=== PATIENT | male | born 1945 | race Caucasian/White ===

== ENCOUNTER 2018-11-09 21:34 | Emergency (ER) | payer OTHER ==
[~2018-11-09] VITALS: Ht 170.2 cm; Wt 81.6 kg
[2018-11-09] MEDS ORDERED: cloNIDine HCL 0.1 MG TAB ONE (21:40)
[2018-11-09] MEDS ORDERED: cloNIDine HCL 0.1 MG TAB PO ONE (21:45)
[2018-11-09 21:54] VITALS: BP 178/97
[2018-11-09 22:32] LABS: Basophils # (auto) 0 uL; Basophils % (auto) 0.5 % (0.0-2.0); Eosinophils # (auto) 0 uL; Eosinophils % (auto) 0.3 % (0.0-7.0); Hematocrit 44.6 % (41.0-53.0); Hemoglobin 15.7 g/dL (13.5-17.5); Lymphocytes # (auto) 0.9 uL; Lymphocytes % (auto) 9.4 % (10.0-50.0); Mean Corpuscular Hemoglobin 30.6 pg (28.0-32.0); Mean Corpuscular Hgb Conc. 35.1 g/dL (32.0-36.0); Mean Corpuscular Volume 87.1 fL (80.0-100.0); Monocytes # (auto) 0.4 uL; Neutrophils # (auto) 8.1 uL; Neutrophils % (auto) 85.8 % (37.0-80.0); Platelet Count (auto) 210 10^3/uL (140-450); Red Blood Cells 5.12 10^6/uL (4.5-5.90); Red Cell Distribution Width 13.4 % (11.8-14.3); White Blood Cell 9.4 10^3/uL (4.4-10.8)
[2018-11-09 22:48] LABS: Albumin 4.1 g/dL (3.4-5.0); Calcium 8.9 mg/dL (8.5-10.1); Potassium 4.1 mmol/L (3.5-5.1)
[2018-11-09 22:51] LABS: BUN/Creatinine Ratio 16.1; Bilirubin, Total 0.3 mg/dL (0.2-1.0); Total Protein 8.3 g/dL (6.4-8.2)
== END 2018-11-09 23:35 | disposition left against medical advice (07) ==
LOC: EDBD 21:34 → ER 21:37
DX: R51 Headache (principal); Z53.21 Procedure and treatment not carried out due to patient leaving prior to being seen by health care provider
CPT/HCPCS: 36415; 70450; 80053; 85025

== ENCOUNTER 2019-01-29 13:41 | Inpatient (IN) | payer OTHER ==
[2019-01-29] VITALS (36 sets, daily range): BP systolic 88–189; BP diastolic 51–93
[~2019-01-29] VITALS: Ht 182.9 cm; Wt 96.1 kg
[2019-01-29] MEDS ORDERED: MIDAZOLAM DRIP 50 mg/50mL 50 ML IV ONE ×2 (14:20→15:45)
[2019-01-29] MEDS ORDERED: ETOMIDATE (2MG/ML) 20ML VIAL IV ONE ×2 (14:20→16:15)
[2019-01-29] MEDS ORDERED: SUCCINYLCHOLINE CHLORIDE 20 MG/ML 10ML VIAL IV ONE ×2 (14:20→16:15)
[2019-01-29] MEDS: MIDAZOLAM DRIP 50 mg/50mL 50 ML IV SCH ×2 (14:37→20:15)
[2019-01-29] MEDS ORDERED: PROPOFOL 100 ML IV ONE ×2 (14:43→14:45)
[2019-01-29] MEDS ORDERED: MORPHINE SULF INJ 2 MG/ML SYRINGE 1ML ONE (14:44)
[2019-01-29] MEDS ORDERED: AMIODARONE HCL (50 MG/ ML) 3 ML VIAL IV ONE (14:44)
[2019-01-29] MEDS ORDERED: PROPOFOL 100 ML IV SCH (14:47)
[2019-01-29 14:48] LABS: Basophils # (auto) 0 uL; Basophils % (auto) 0.4 % (0.0-2.0); Eosinophils # (auto) 0 uL; Eosinophils % (auto) 0.1 % (0.0-7.0); Hematocrit 40.2 % (41.0-53.0); Hemoglobin 13.4 g/dL (13.5-17.5); Lymphocytes # (auto) 0.1 uL; Lymphocytes % (auto) 1.7 % (10.0-50.0); Mean Corpuscular Hemoglobin 28.9 pg (28.0-32.0); Mean Corpuscular Hgb Conc. 33.3 g/dL (32.0-36.0); Mean Corpuscular Volume 86.8 fL (80.0-100.0); Monocytes # (auto) 0.1 uL; Monocytes % (auto) 1.3 % (0.0-12.0); Neutrophils # (auto) 5.4 uL; Neutrophils % (auto) 96.5 % (37.0-80.0); Platelet Count (auto) 165 10^3/uL (140-450); Red Blood Cells 4.63 10^6/uL (4.5-5.90); Red Cell Distribution Width 14.1 % (11.8-14.3); White Blood Cell 5.5 10^3/uL (4.4-10.8)
[2019-01-29] MEDS ORDERED: NOREPINEPHRINE 8 MG/250ML KIT 250 ML IV ONE (14:50)
[2019-01-29 15:00] LABS: INR 1.03 (0.9-1.15)
[2019-01-29] MEDS ORDERED: ALBUTEROL SULF 2.5 MG/0.5ML(0.5%) NEB SOLN NEB PRN (15:00)
[2019-01-29] MEDS ORDERED: SODIUM CHLORIDE 0.9% 1,000 ML IV SCH (15:00)
[2019-01-29] MEDS ORDERED: VANCOMYCIN PER PHARMACY 0 MG IV SCH (15:00)
[2019-01-29] MEDS ORDERED: MORPHINE SULF INJ 2 MG/ML SYRINGE 1ML IV PRN (15:00)
[2019-01-29] MEDS ORDERED: NITROGLYCERIN 0.4 MG SL TAB SL PRN (15:00)
[2019-01-29] MEDS ORDERED: IPRATROPIUM BROM 0.5 MG/2.5ML INH SOL NEB PRN (15:00)
[2019-01-29] MEDS ORDERED: MORPHINE SULF INJ 2 MG/ML SYRINGE 1ML IV ONE ×2 (15:00→16:15)
[2019-01-29 15:05] LABS: Alanine Aminotransferase 23 U/L (16-61); Albumin 2.9 g/dL (3.4-5.0); Anion Gap 14 (5-15); Aspartate Aminotransferase 19 U/L (15-37); BUN/Creatinine Ratio 17.8; Blood Alcohol < 3.0 mg/dL (0-5); Blood Urea Nitrogen 32 mg/dL (7-18); Calcium 8.5 mg/dL (8.5-10.1); Carbon Dioxide 21 mmol/L (21-32); Chloride 98 mmol/L (98-107); GFR African American 48 mL/min; GFR Non-African American 40 mL/min; Glucose 288 mg/dL (74-106); Magnesium 1.5 mg/dL (1.6-2.6); Potassium 3.3 mmol/L (3.5-5.1); Sodium 133 mmol/L (136-145)
[2019-01-29 15:08] LABS: Lactic Acid w/Reflex 3.1 mmol/L (0.4-2.0)
[2019-01-29] MEDS: NOREPINEPHRINE 8 MG/250ML KIT 250 ML IV SCH ×2 (15:08→20:28)
[2019-01-29 15:10] LABS: Alkaline Phosphatase 110 U/L (45-117); Bilirubin, Total 0.5 mg/dL (0.2-1.0); Total Protein 7.2 g/dL (6.4-8.2)
[2019-01-29] MEDS ORDERED: SODIUM CHLORIDE 0.9% 3,150 ML IV ONE (15:15)
[2019-01-29] MEDS ORDERED: DEXTROSE (50%) 50ML SYRG IV PRN (15:30)
[2019-01-29] MEDS ORDERED: POTASSIUM CHL 20MEQ/100ML 100 ML IV ONE (15:30)
--- NOTE | 2019-01-29 16:00 | NUR ---
RT Transport Note: Patient transported to {CT THEN ICU 109} with RN {JULIETH AND RN STUDENTS}. Patient transported to and from procedure on ventilator with previous ordered settings. Patient on security services manager with alarms set and audible, ambu-bag/mask connected to 02 tank. Patient returned to room with no adverse reaction noted. Transport completed without incident.
--- NOTE | 2019-01-29 16:15 | NUR ---
Admit to ICU from ER on vent TOVAR,DEMETRIO Farahdmitted to ICU via gurney on marketing agent, intubated and being bagged by Respiratory Therapist. Patient transfered to bed, connected to mechanical ventilator by therapist, ANTHONY at bedside. Patient connected to ICU monitoring, weighed by bedscale, oriented to Yogi horton RN, unit, ventilator and sedation.
[2019-01-29] MEDS: MAGNESIUM SULFATE 1GM/100ML 100 ML IV SCH ×4 (16:33→20:13)
[2019-01-29] MEDS ORDERED: SODIUM CHLORIDE 0.9% 1,000 ML IV ONE (16:45)
[2019-01-29] MEDS ORDERED: methylPREDNISolone SOD SUCC 125 MG/2 ML VL IV ONE (16:45)
--- NOTE | 2019-01-29 16:55 | NUR ---
Respiratory note: PER 'S VERBAL BEDSIDE ORDER. VENT SETTINGS CHANGED AC 20/470/+12/100%. SATS NOTED TO SLOWLY INCREASE TO 91%. RN DOMINIK AT BEDSIDE AND AWARE OF SETTING CHANGES. WILL HAVE NOC THERAPIST FOLLOW WITH CARE.
[2019-01-29] MEDS ORDERED: InsuLIN REG 1unit/0.01ml Soln (100units/ml) SC SCH ×2 (17:00→22:00)
[2019-01-29] MEDS: PHENYLEPHRINE INJ 20 MG in SODIUM CHL 0.9% 250 ML IV SCH (17:12)
--- NOTE | 2019-01-29 17:17 | NUR ---
INFLUENZA AND STREP SENT TO LAB
[2019-01-29] MEDS: ACCU-CHEK COMFORT CURVE STRIP VI SCH ×2 (17:36→22:18)
--- NOTE | 2019-01-29 18:05 | NUR ---
FAMILY SPOKE WITH IMER [phone]. UPDATED ON PATIENT STATUS
[2019-01-29] MEDS: PROPOFOL 100 ML IV SCH (18:08)
[2019-01-29] MEDS: VANCOMYCIN 500 MG in D5W 5% 100 ML IV SCH (18:20)
[2019-01-29] MEDS: LEVALBUTEROL HCL 1.25 MG/3 ML NEB NEB SCH ×2 (18:27→22:35)
[2019-01-29] MEDS: IPRATROPIUM BROM 0.5 MG/2.5ML INH SOL NEB SCH ×2 (18:28→22:35)
[2019-01-29] MEDS: SODIUM CHLORIDE 0.9% 1,000 ML IV SCH ×3 (18:37→22:47)
[2019-01-29] MEDS: PIPERACILLIN-TAZOB 3.375GM 100 ML IV SCH (18:58)
[2019-01-29] MEDS ORDERED: LOS25T GT (19:26)
[2019-01-29] MEDS ORDERED: NIFE30TA76 PO ×2 (19:26)
[2019-01-29] MEDS ORDERED: HYDR-4833 PO (19:27)
[2019-01-29] MEDS ORDERED: GABA300C11 GT (19:27)
[2019-01-29] MEDS ORDERED: PANT1INJ3 IV (19:28)
[2019-01-29] MEDS ORDERED: TOBR1NEB IN (19:29)
--- NOTE | 2019-01-29 19:29 | NUR ---
MED REC COMPLETED WITHOUT DOSAGE AND FREQUENCY. PER IMER SHE WILL BRING IN COMPLETE LIST OF MEDICATIONS TOMORROW 01/30
--- NOTE | 2019-01-29 19:30 | NUR ---
REPORT GIVEN TO AKSHAT HEIN TO ASSUME CARE
--- NOTE | 2019-01-29 19:45 | NUR ---
ASSUMED CARE OF PATIENT FULL ASSESSMENT DONE-REFER INTERVENTIONS
--- NOTE | 2019-01-29 20:43 | NUR ---
HOSPITALIST AT BEDSIDE OCEAN LIFEGUARD KALEB AT BEDSIDE. NOTED OF PARAMETERS AND URINE OUTPUT. ORDERS RECEIVED
[2019-01-29] MEDS ORDERED: VASOPRESSIN 50 UNITS in D5W 5% 247.5 ML IV SCH (20:45)
--- NOTE | 2019-01-29 20:45 | NUR ---
SEDATION DAMAGE INSIDE ADJUSTER KALEB ORDERS TO USE VERSED AND FENTANYL FOR SEDATION AND TURNED OFF PROPOFOL
[2019-01-29] MEDS: FAMOTIDINE (10MG/ML) 2ML VL IV SCH (22:22)
--- NOTE | 2019-01-29 22:40 | NUR ---
HOSPITALIST PAGED FOR HIGH BLOOD SUGAR
[2019-01-29] MEDS: fentaNYL Drip 2500mCg/250mlNS 250 ML IV SCH (22:42)
--- NOTE | 2019-01-29 22:42 | NUR ---
SEDATION STARTED ON IV FENTANYL WILL WEAN DOWN IV PROPOFOL UNTIL OFF
--- NOTE | 2019-01-29 23:00 | NUR ---
HOSPITALIST CALLED BACK TALKED TO JEANINE SCHOFIELD INFORMED OF BLOOD SUGAR 470MG/DL WAS ALREADY GIVEN 10 UNITS SC NO ADDITIONAL INSULIN ORDERED, NO OTHER ORDERS RECEIVED
[2019-01-30] VITALS (102 sets, daily range): BP systolic 86–152; BP diastolic 52–81
--- NOTE | 2019-01-30 | NUR ---
TEMP 97.2 CHECKED RECTAL PROBE - IT WAS IN PLACE WARM BLANKET APPLIED WILL CONTINUE TO MONITOR
[2019-01-30] MEDS: MIDAZOLAM DRIP 50 mg/50mL 50 ML IV SCH ×4 (00:40→23:52)
[2019-01-30] MEDS: PIPERACILLIN-TAZOB 3.375GM 100 ML IV SCH ×4 (00:45→19:59)
[2019-01-30] MEDS: PHENYLEPHRINE INJ 20 MG in SODIUM CHL 0.9% 250 ML IV SCH (01:32)
[2019-01-30] MEDS: IPRATROPIUM BROM 0.5 MG/2.5ML INH SOL NEB SCH ×6 (02:30→22:05)
--- NOTE | 2019-01-30 03:10 | NUR ---
BLOOD SUGAR RECHECKED BLOOD SUGAR 491MG/DL CALLED HOSPITALIST TELEPHONE ORDER RECEIVED AND VERIFIED ACCU CHECK Q4H WITH MODERATE SLIDING SCALE
[2019-01-30] MEDS: SODIUM CHLORIDE 0.9% 1,000 ML IV SCH ×5 (03:13→23:52)
[2019-01-30] MEDS: ACCU-CHEK COMFORT CURVE STRIP VI SCH ×8 (03:14→22:30)
[2019-01-30] MEDS: InsuLIN REG 1unit/0.01ml Soln (100units/ml) SC SCH ×3 (03:18→13:04)
[2019-01-30 03:54] LABS: Basophils # (auto) 0 uL; Basophils % (auto) 0.3 % (0.0-2.0); Eosinophils # (auto) 0 uL; Hematocrit 36.1 % (41.0-53.0); Hemoglobin 12.1 g/dL (13.5-17.5); Lymphocytes # (auto) 0.3 uL; Lymphocytes % (auto) 2.7 % (10.0-50.0); Mean Corpuscular Hemoglobin 29.8 pg (28.0-32.0); Mean Corpuscular Hgb Conc. 33.5 g/dL (32.0-36.0); Monocytes # (auto) 0.3 uL; Monocytes % (auto) 2.3 % (0.0-12.0); Neutrophils # (auto) 10.9 uL; Neutrophils % (auto) 94.7 % (37.0-80.0); Nucleated Red Blood Cells % 0.1 %; Platelet Count (auto) 187 10^3/uL (140-450); Red Blood Cells 4.06 10^6/uL (4.5-5.90); Red Cell Distribution Width 14.2 % (11.8-14.3); White Blood Cell 11.5 10^3/uL (4.4-10.8)
[2019-01-30 04:11] LABS: Anion Gap 10 (5-15); Blood Urea Nitrogen 30 mg/dL (7-18); Carbon Dioxide 21 mmol/L (21-32); Chloride 103 mmol/L (98-107); Potassium 4.6 mmol/L (3.5-5.1); Sodium 134 mmol/L (136-145)
[2019-01-30 04:12] LABS: Albumin 2.2 g/dL (3.4-5.0); BUN/Creatinine Ratio 17.6; Calcium 7.7 mg/dL (8.5-10.1); GFR African American 51 mL/min; GFR Non-African American 42 mL/min; Magnesium 2.8 mg/dL (1.6-2.6)
[2019-01-30 04:16] LABS: Alanine Aminotransferase 20 U/L (16-61); Alkaline Phosphatase 94 U/L (45-117); Aspartate Aminotransferase 19 U/L (15-37); Bilirubin, Total 0.5 mg/dL (0.2-1.0); Cholesterol 145 mg/dL (< 200); HDL Cholesterol 10 mg/dL (40-59); Total Protein 6.2 g/dL (6.4-8.2); Triglycerides 701 mg/dL (< 150)
[2019-01-30 04:30] LABS: Glucose 488 mg/dL (74-106)
--- NOTE | 2019-01-30 05:30 | NUR ---
Patient bathe/linen change Patient given a sponge bath. Skin integrity assessed for any changes. Linens changed. Patient repositioned for comfort.
[2019-01-30] MEDS: VANCOMYCIN 500 MG in D5W 5% 100 ML IV SCH ×2 (06:19→18:00)
[2019-01-30] MEDS: NOREPINEPHRINE 8 MG/250ML KIT 250 ML IV SCH (06:47)
[2019-01-30] MEDS: LEVALBUTEROL HCL 1.25 MG/3 ML NEB NEB SCH ×3 (07:06→18:08)
--- NOTE | 2019-01-30 07:15 | NUR ---
OPENING NOTE SHIFT REPORT RECEIVED AND ASSUMED CARE OF PT FROM AKSHAT HEIN
--- NOTE | 2019-01-30 07:30 | NUR ---
REPORT REPORT GIVEN TO ANGEL LUIS CHOPAR
--- NOTE | 2019-01-30 09:00 | NUR ---
HOSPITALIST PAGED REGARDING BLOOD SUGAR
--- NOTE | 2019-01-30 09:05 | NUR ---
HOSPITALIST CALLED BACK WITH ORDER TO RE-CHECK BLOOD SUGAR IN 1 HOUR
[2019-01-30] MEDS ORDERED: GOLYTELY 4L KIT PO ONE (09:45)
--- NOTE | 2019-01-30 10:00 | NUR ---
DR. YUSUF AT BEDSIDE ORDERS RECEIVED
--- NOTE | 2019-01-30 10:00 | NUR ---
DR. SAPP AT BEDSIDE ORDERS RECEIVED. COLONOSCOPY FOR TOMORROW. CONSENT SIGNED
[2019-01-30] MEDS: ENOXAPARIN SOD 40 MG/0.4 ML SYRINGE SC SCH (10:04)
[2019-01-30] MEDS: FAMOTIDINE (10MG/ML) 2ML VL IV SCH ×2 (10:04→22:01)
--- NOTE | 2019-01-30 11:32 | NUR ---
NUTRITION CONSULT/ASSESSMENT NOTES Please refer to link notes of nutrition screen form filed under the intervention section of the plan of care for further details. Est. Needs: 1950 kcal to 2400 kcal (20-25 kcal/kgBW), 78 gms to 97 gms pro (0.8-1.0 gms/kgBW). Will continue to monitor pertinent labs and reassess nutrient need prn Thank you for this consult. Addendum: 01/30/19 at [address] Amended: Links added.
--- NOTE | 2019-01-30 12:20 | NUR ---
DR. MARROQUIN AT BEDSIDE ORDERS RECEIVED
[2019-01-30] MEDS ORDERED: InsuLIN R (HUMAN) 100 UNITS in SODIUM CHL 0.9% 99 ML IV SCH ×9 (12:23→16:48)
[2019-01-30] MEDS ORDERED: DEXTROSE (50%) 50ML SYRG IV PRN ×3 (12:30→20:15)
[2019-01-30] MEDS ORDERED: ACCU-CHEK COMFORT CURVE STRIP VI SCH ×2 (12:30→18:30)
--- NOTE | 2019-01-30 12:30 | NUR ---
COOLING MEASURES INITIATED
[2019-01-30] MEDS ORDERED: SODIUM BICARBONATE 8.4% INJ 50ML SYRINGE IV ONE (12:35)
[2019-01-30] MEDS ORDERED: ATROPINE SULF 1 MG/10ml SYR IV ONE (12:35)
[2019-01-30] MEDS ORDERED: EPINEPHrine HCL 1 MG/10 ML SYRG IV ONE (12:35)
--- NOTE | 2019-01-30 12:40 | NUR ---
DR. CARDOZO AT BEDSIDE ORDERS RECEIVED
--- NOTE | 2019-01-30 12:41 | NUR ---
01/30/19 1225 Contacted Library Specialist Libby at [facility] and requested authorization to be provided for patient's continued stay. Per Library Specialist Libby, she is requesting clinical information from today 01/30 to be faxed to her as what she received this morning was from 01/29. She stated once she receives the additional clinical information she will review it with her MD and make a decision regarding further inpatient authorization. I faxed requested clinical information (01/30 vitals, labs, xrays and medication list) to [phone]. I also provided [facility] Library Specialist Libby with a verbal update on the clinical status of the patient as well as providing her with contact information for attending physician Dr. Osborn.
--- NOTE | 2019-01-30 13:11 | NUR ---
WOUND CARE NOTE: WOUND CONSULT ORDERED FOR SKIN INTEGRITY D/T LOW ALFREDA SCORES, INTUBATION STATUS. PATIENT ADMITTED TO [facility] WITH DIAGNOSIS OF ACUTE RESPIRATORY FAILURE. CURRENT ALFREDA SCORE IS 11. PATIENT REMAINS INTUBATED, SEDATED AT THIS TIME. HE IS WOUND FREE CURRENTLY. SKIN/WOUND CARE PLAN HAS BEEN IMPLEMENTED. PATIENT WOULD BENEFIT FROM: FREQUENT TURN SCHEDULE Q 2 HOURS, PRN CONDITION PERMITS, WITH PRESSURE REDISTRIBUTION USING PILLOWS/WEDGES, BID/PRN APPLICATION WITH MOISTURE BARRIER CREAM, OPTIFOAM GENTLE SACRAL DRESSING PREVENTATIVE, DIETARY CONSULT, CONTINUED MONITORING BY WOUND CARE TEAM.
--- NOTE | 2019-01-30 13:20 | NUR ---
1315 01/30/[address] Osborn who stated patient not stable for transfer to [facility] today. I called [facility] [phone] and spoke with correspondence analyst Hussein who transferred me to correspondence analyst Ashley (for Programming Internship Libby). I made correspondence analyst Ashley aware that patient is not stable for transfer to [facility] today-she said Programming Internship Libby will still have to review the faxed clinical information to make a decision on authorization for today. I provided Ashley with my contact information, contact information for Dr. Osborn already provided to Programming Internship Libby.
--- NOTE | 2019-01-30 14:00 | NUR ---
GO LYTLEY INITIATED 200ML THROUGH NG TUBE. WILL CONTINUE TO MONITOR
[2019-01-30] MEDS ORDERED: FUROSEMIDE 40 MG/4 ML VIAL IV ONE (14:15)
[2019-01-30] MEDS: fentaNYL Drip 2500mCg/250mlNS 250 ML IV SCH (14:47)
--- NOTE | 2019-01-30 14:57 | NUR ---
RECEIVED INSULIN DRIP FROM PHARMACY BLOOD SUGAR 357. WILL START INSULIN DRIP AT 4UNITS/HR PER PROTOCOL. WILL CONTINUE TO MONITOR
--- NOTE | 2019-01-30 16:00 | NUR ---
NG RESIDUAL 80ML. 100ML GIVEN. WILL CONTINUE TO MONITOR
[2019-01-30] MEDS: PROPOFOL 100 ML IV SCH (16:06)
--- NOTE | 2019-01-30 16:15 | NUR ---
1545 01/30/19 I called [facility] [phone] and spoke with corporate strategy analyst Alma requesting continued inpatient authorization (as I have not received a call back from registered nurse hh case manager Libby). Per Alma the clinical information is still being reviewed-I requested that Alma have Farm Tractor Mechanic Libby call me when authorization decision is reached.
--- NOTE | 2019-01-30 16:47 | NUR ---
BLOOD SUGAR 332. WILL MOVE UP TO NEXT ALGORITHM #2 DUE TO BLOOD SUGAR NOT DECREASING BY 50-70 PER PROTOCOL
[2019-01-30 17:30] LABS: Calcium 7.8 mg/dL (8.5-10.1); Potassium 4.4 mmol/L (3.5-5.1)
[2019-01-30] MEDS ORDERED: ACETAMINOPHEN 650 mg PER 20 mL UD GT ONE (18:00)
--- NOTE | 2019-01-30 18:57 | NUR ---
BLOOD SUGAR 268 WILL ADJUST INSULIN TO 5 UNITS/HR PER PROTOCOL
--- NOTE | 2019-01-30 19:20 | NUR ---
CLOSING NOTE SHIFT REPORT GIVEN AND CARE ENDORSED TO JULIETH HEIN
--- NOTE | 2019-01-30 19:30 | NUR ---
OPEN ASSUMED CARE OF MALE PT ORALLY INTUBATED NO SS OF DISTRESS, VS ARE STABLE. PT HAS R TRIPLE IJ, R AC 18G, L UPPER ARM 20G. ALL LINES ARE PATENT AND ASYMPTOMATIC, DRESSINGS ARE CLEAN AND DRY. PT IS ON FENT 80MCG/HR, INSULIN DRIP 8ML/HR,VERSED 8MG/HR, NS AT 100ML/HR. PT PUPILS ARE 3 AND BRISK REACTIVE. PT SPONTANEOUSLY OPENS EYES. GRIMACES WITH TURN AND POSITIVE GAG AND COUGH WITH SUCTION. PT HAS A LARGE BUMP BELOW THE R CLAVICAL, A SCAR TO THE R SIDE OF THE ABDOMEN. OPTIFOAM APPLIED TO SACRUM FOR PREVENTATIVE MEASURES. BILATERALLY COLD LOWER EXTREMITIES BOTH PEDAL PULSES PALPABLE AND CAP REFILL <3. PT HAS FOLY HANGING BELOW BLADDER DRAINING YELLOW URINE. PT HAS RECTAL THERMOMETER. PT HAS PILLOWS IN PLACE UNDER IHSAN PROMINENCES TO OFFLOAD PRESSURE FOR SAFETY AND COMFORT. BED IS IN LOWEST LOCKED POSITION, HOB 45*, PT IS IN FULL VIEW OF RN STATION WILL CONTINUE TO CARE FOR AND MONITOR.
[2019-01-30] MEDS: InsuLIN R (HUMAN) 100 UNITS in SODIUM CHL 0.9% 99 ML IV SCH (20:07)
--- NOTE | 2019-01-30 23:10 | NUR ---
PT REMAINS INTUBATED PT REMAINS INTUBATED, NO SS OF DISTRESS NOTED AT THIS TIME, VS ARE STABLE
[2019-01-31] VITALS (101 sets, daily range): BP systolic 95–179; BP diastolic 55–101
[2019-01-31] MEDS: ACCU-CHEK COMFORT CURVE STRIP VI SCH ×16 (00:02→22:53)
[2019-01-31] MEDS: fentaNYL Drip 2500mCg/250mlNS 250 ML IV SCH (00:02)
[2019-01-31] MEDS: LEVALBUTEROL HCL 1.25 MG/3 ML NEB NEB SCH ×4 (00:27→18:47)
[2019-01-31] MEDS: PIPERACILLIN-TAZOB 3.375GM 100 ML IV SCH ×3 (00:40→13:47)
--- NOTE | 2019-01-31 01:20 | NUR ---
SUCTION CANISTERS AND TUBING CHANGED
[2019-01-31] MEDS: IPRATROPIUM BROM 0.5 MG/2.5ML INH SOL NEB SCH ×5 (02:19→18:47)
--- NOTE | 2019-01-31 03:15 | NUR ---
HYGIENE PARTIAL BED BATH AND JUAN ANTONIO CHANGE PROVIDED. PT TOLERATED CARE AND TURNS. VS ARE STABLE.
[2019-01-31 04:39] LABS: Potassium 4.3 mmol/L (3.5-5.1)
[2019-01-31 04:44] LABS: Albumin 2.2 g/dL (3.4-5.0); Bilirubin, Total 0.3 mg/dL (0.2-1.0); Calcium 7.8 mg/dL (8.5-10.1); Magnesium 2.8 mg/dL (1.6-2.6); Total Protein 6.3 g/dL (6.4-8.2)
[2019-01-31 04:46] LABS: Basophils # (auto) 0 uL; Basophils % (auto) 0.2 % (0.0-2.0); Eosinophils # (auto) 0 uL; Eosinophils % (auto) 0.1 % (0.0-7.0); Hematocrit 32.6 % (41.0-53.0); Lymphocytes # (auto) 0.5 uL; Lymphocytes % (auto) 5.6 % (10.0-50.0); Mean Corpuscular Hemoglobin 29.9 pg (28.0-32.0); Mean Corpuscular Hgb Conc. 33.8 g/dL (32.0-36.0); Mean Corpuscular Volume 88.6 fL (80.0-100.0); Monocytes # (auto) 0.4 uL; Monocytes % (auto) 5.3 % (0.0-12.0); Neutrophils # (auto) 7.4 uL; Neutrophils % (auto) 88.8 % (37.0-80.0); Platelet Count (auto) 147 10^3/uL (140-450); Red Blood Cells 3.68 10^6/uL (4.5-5.90); Red Cell Distribution Width 14.6 % (11.8-14.3); White Blood Cell 8.4 10^3/uL (4.4-10.8)
[2019-01-31] MEDS: VANCOMYCIN 500 MG in D5W 5% 100 ML IV SCH (06:28)
--- NOTE | 2019-01-31 07:15 | NUR ---
Opening Shift Note: Report received from ANGEL LUIS Rizvi. Patient is intubated -scheduled for Bronch and CPAP today. Patient had high residuals not tolerating Golytely,.will reassess. See Interventions for more specific patient assessment.
--- NOTE | 2019-01-31 08:20 | NUR ---
Residuals checked = 150 out. Not tolerating golytely. Administered more Golytely and will check residuals in 2 hours to verify tolerance.
--- NOTE | 2019-01-31 09:14 | NUR ---
PT SWITCHED TO HEATED WIRE CIRCUIT AT THIS TIME WITHOUT INCIDENT. VENT CIRCUIT SST PASS BEFORE PLACING PATIENT BACK ON VENTILATOR.
--- NOTE | 2019-01-31 09:36 | NUR ---
0930 01/31/19 Contacted digital research analyst Vikki at [facility] and requested authorization to be provided for continued stay. Per Vikki they did receive clinical information today on this member-but that the case worker needs to review the information before further authorization can be provided (case worker has not been assigned yet). I provided Vikki with my contact information and requested that she have the assigned case worker call me.
[2019-01-31] MEDS ORDERED: SODIUM CHLORIDE LOCK 0 ML ONE (09:49)
[2019-01-31] MEDS ORDERED: fentaNYL CITRATE 100 MCG/2 ML VL ONE (09:50)
[2019-01-31] MEDS ORDERED: LIDOCAINE HCL 2% TOP JELLY 5ML TOP ONE (09:50)
[2019-01-31] MEDS ORDERED: diphenhdrAMINE HCL 50 MG/1 ML VL ONE (09:50)
[2019-01-31] MEDS ORDERED: MIDAZOLAM HCL 5 MG/ML-1ML VIAL ONE (09:50)
--- NOTE | 2019-01-31 10:20 | NUR ---
CVP lined zeroed.
--- NOTE | 2019-01-31 10:20 | NUR ---
Residuals checked = 150 out. Not tolerating Golytely.
[2019-01-31] MEDS: ENOXAPARIN SOD 40 MG/0.4 ML SYRINGE SC SCH (10:31)
[2019-01-31] MEDS: FAMOTIDINE (10MG/ML) 2ML VL IV SCH ×2 (10:31→22:19)
[2019-01-31] MEDS: SODIUM CHLORIDE 0.9% 1,000 ML IV SCH ×2 (10:32→21:34)
--- NOTE | 2019-01-31 10:33 | NUR ---
Spoke with Dr. Mejía and updated on status: patient not tolerating golytely -cancel Bronch.
[2019-01-31] MEDS: InsuLIN R (HUMAN) 100 UNITS in SODIUM CHL 0.9% 99 ML IV SCH (10:34)
[2019-01-31] MEDS: MIDAZOLAM DRIP 50 mg/50mL 50 ML IV SCH (10:35)
--- NOTE | 2019-01-31 11:10 | NUR ---
FIO2 DECREASED TO 80%. SPO2 98% AFTER CHANGE.
--- NOTE | 2019-01-31 12:22 | NUR ---
Dr. Osborn at bedside: No transfer until stabilized for transfer.
--- NOTE | 2019-01-31 13:11 | NUR ---
1300 01/31/19 I received a call from [facility] Director Child Abuse Therapy Kitty [phone]-she stated that this patient's inpatient authorization has been extended through today-until 02/01/19 1000.
--- NOTE | 2019-01-31 13:45 | NUR ---
Dr. Kam at bedside: Aware of high residuals, no colonoscopy. Abdominal xray ordered.
--- NOTE | 2019-01-31 15:42 | NUR ---
Dr Mejía at bedside: New orders- lasix in the am x1, mucomyst, rocephin, D/C vanco and zosyn. ABG and CXR in the morning.
--- NOTE | 2019-01-31 16:06 | NUR ---
Decreased Fi02 to 60%
[2019-01-31] MEDS: NOREPINEPHRINE 8 MG/250ML KIT 250 ML IV SCH (16:15)
--- NOTE | 2019-01-31 16:37 | NUR ---
VENT SETTINGS CHANGED AT THIS TIME PER DR NETTLES. PT IS NOW ON AC, RR 24, VT 470, PEEP12, 50% FIO2. SPO2 94%.
--- NOTE | 2019-01-31 18:22 | NUR ---
URINE COLLECTED AND SENT TO LAB.
--- NOTE | 2019-01-31 18:45 | NUR ---
RT NOTE TELEPHONE ORDER FROM DR NETTLES TO CHANGE ATROVENT ORDER FROM Q4 TO Q6. CONT ORDERED
--- NOTE | 2019-01-31 18:46 | NUR ---
RT NOTE RECEIVED PT INTUBATED AND ON VENT V4 ON STATED SETTINGS .VENT IS PLUGGED TO RED OUTLET. ALARMS ARE ON AND AUDIBLE AT NURSES STATION. AMBU BAG AT BEDSIDE AND CONNECTED TO O2 SOURCE. 7.5 ETT IS SECURED WITH ANCHORFAST AT 24 CM TO THE ORAL RIGHT. BILATERAL BS ARE CLEAR/DIM. PT WAS SUCTIONED FOR SCANT RETURN. HHN GIVEN INLINE WITH 1.25 MG XOPENEX, 0.5 MG ATROVENT AND 1 CC 10% MUCOMYST WITHOUT ADVERSE REACTION NOTED. PT ON HEATED CIRCUIT WITH CIRCUIT TEMP 36.0, CVP 6, TEMP 100.6, POX 96% Addendum: 01/31/19 at 1950 by Ingris Doll RT Amended: Links added.
[2019-01-31] MEDS: ACETYLCYSTEINE 10 %(100MG/ML) SOL 4ML NEB SCH (18:48)
[2019-01-31] MEDS ORDERED: BUP100T GT (19:06)
[2019-01-31 19:12] LABS: Urine Bacteria FEW /hpf (None Seen); Urine Blood TRACE /uL (Negative); Urine Mucus FEW (None Seen); Urine Specific Gravity 1.019 (1.001-1.035); Urine WBC 26 /hpf (0 - 3)
[2019-01-31] MEDS ORDERED: HYDR1TAB97 PO (19:22)
[2019-01-31] MEDS ORDERED: SERT-377 PO (19:22)
[2019-01-31] MEDS ORDERED: TERA1CAP50 PO (19:22)
[2019-01-31] MEDS ORDERED: TOBRSUS34 EACHEYE (19:23)
[2019-01-31 19:24] LABS: Creatinine, Urine 102 mg/dL (30.0-125.0); Sodium Urine 43 mmol/L (40-220)
--- NOTE | 2019-01-31 19:27 | NUR ---
REPORT GIVEN TO ANGEL LUIS KHAN.
[2019-01-31 19:58] LABS: Albumin 2.1 g/dL (3.4-5.0); BUN/Creatinine Ratio 27.4; Calcium 7.9 mg/dL (8.5-10.1)
[2019-01-31 20:00] LABS: Bilirubin, Total 0.4 mg/dL (0.2-1.0); Total Protein 5.8 g/dL (6.4-8.2)
--- NOTE | 2019-01-31 20:00 | NUR ---
OPENING NOTE ASSUMED CARE OF PATIENT AT THIS TIME. REPORT RECEIVED FROM DAY SHIFT RN. POC REVIEWED. HEAD TO TOE ASSESSMENT COMPLETE, SEE INTERVENTION SPREADSHEET FOR COMPLETE DETAILS. RECEIVED PT INTUBATED AND SEDATED. RECEIVED PT WITH CONTINUOUS CVP MONITOR. RECEIVED PT WITH LFT NARE NGT TO LIS. IV SITES BENIGN. HOGUE CATHETER DRAINING TO GRAVITY. SCD'S ON LOWER EXTREMITIES BILATERALLY. SUCTION AND BVM AT BEDSIDE. BED LOCKED AND IN LOWEST POSITION, SAFETY PRECAUTIONS IN PLACE. WILL MONITOR PT CAREFULLY.
--- NOTE | 2019-01-31 20:07 | NUR ---
temp rectal temp 100.4. Cooling measures initiated.
--- NOTE | 2019-01-31 20:17 | NUR ---
RT NOTE ROUTINE VENT CHECK DONE. PT INTUBATED AND ON VENT V4 ON STATED SETTINGS .VENT IS PLUGGED TO RED OUTLET. ALARMS ARE ON AND AUDIBLE AT NURSES STATION. AMBU BAG AT BEDSIDE AND CONNECTED TO O2 SOURCE. 7.5 ETT IS SECURED WITH ANCHORFAST AT 24 CM TO THE ORAL RIGHT. PT ON HEATED CIRCUIT WITH CIRCUIT TEMP 36.0, CVP 7, TEMP 100.4, POX 96% Addendum: 01/31/19 at 2040 by Ingris Doll RT Amended: Links added.
--- NOTE | 2019-01-31 20:33 | NUR ---
Spoke with hospitalist in regards to Insulin gtt necessity. TUBE BALANCER will review pt chart and make recommendations.
--- NOTE | 2019-01-31 21:40 | NUR ---
sedation vacation not appropriate at this time. Pt opens eyes when turning and becomes agitated. Addendum: 01/31/19 at 2140 by JUSTINA FIGUEROA RN Amended: Links added.
--- NOTE | 2019-01-31 22:07 | NUR ---
RT NOTE ROUTINE VENT CHECK DONE. PT INTUBATED AND ON VENT V4 ON STATED SETTINGS .VENT IS PLUGGED TO RED OUTLET. ALARMS ARE ON AND AUDIBLE AT NURSES STATION. AMBU BAG AT BEDSIDE AND CONNECTED TO O2 SOURCE. 7.5 ETT IS SECURED WITH ANCHORFAST AT 24 CM TO THE ORAL RIGHT. PT ON HEATED CIRCUIT WITH CIRCUIT TEMP 36.0, CVP 8, TEMP 100.4, POX 97%. Addendum: 01/31/19 at 2301 by Ingris Doll RT Amended: Links added.
--- NOTE | 2019-01-31 22:30 | NUR ---
TEMP REASSESSMENT PT TEMP SLOWLY GOING DOWN, CONTINUING WITH COOLING MEASURES.
[2019-01-31] MEDS ORDERED: InsuLIN R (HUMAN) 100 UNITS in SODIUM CHL 0.9% 99 ML IV SCH (22:53)
[2019-02-01] VITALS (100 sets, daily range): BP systolic 120–211; BP diastolic 53–114
--- NOTE | 2019-02-01 00:10 | NUR ---
RT NOTE ROUTINE VENT CHECK DONE. PT INTUBATED AND ON VENT V4 ON STATED SETTINGS .VENT IS PLUGGED TO RED OUTLET. ALARMS ARE ON AND AUDIBLE AT NURSES STATION. AMBU BAG AT BEDSIDE AND CONNECTED TO O2 SOURCE. 7.5 ETT IS SECURED WITH ANCHORFAST AT 24 CM TO THE ORAL RIGHT. PT BS ARE CLEAR. PT WAS SUCTIONED FOR SMALL RETURN. HHN GIVEN INLINE WITH 1.25 MG XOPENEX, 0.5 MG ATROVENT AND 1CC 10% MUCOMYST WITHOUT ADVERSE REACTION NOTED. PT ON HEATED CIRCUIT WITH CIRCUIT TEMP 36.1, CVP 14, TEMP 100.2, POX 98%. Addendum: 02/01/19 at 0055 by Ingris Doll RT Amended: Links added.
[2019-02-01] MEDS: LEVALBUTEROL HCL 1.25 MG/3 ML NEB NEB SCH ×4 (00:11→18:28)
[2019-02-01] MEDS: IPRATROPIUM BROM 0.5 MG/2.5ML INH SOL NEB SCH ×4 (00:12→18:28)
[2019-02-01] MEDS: ACETYLCYSTEINE 10 %(100MG/ML) SOL 4ML NEB SCH ×4 (00:12→18:28)
[2019-02-01] MEDS: ACCU-CHEK COMFORT CURVE STRIP VI SCH ×16 (00:34→22:42)
--- NOTE | 2019-02-01 00:37 | NUR ---
increasing bp Pt BP 150-190 SBP FOR SEVERAL CONSECUTIVE MEASURES. HOSPITALIST PAGED FOR PRN BP MEDS. FENTANYL INCREASED TO 75 MCG AT THIS TIME FOR PT COMFORT.
[2019-02-01] MEDS ORDERED: LABETALOL HCL 5 MG/ML ML 20ML VIAL IV ONE (01:30)
--- NOTE | 2019-02-01 01:50 | NUR ---
PRN LABETALOL 10 MG IV ORDER RECEIVED FROM HOSPITALIST. GIVEN AT THIS TIME. SEE EMAR FOR VS.
--- NOTE | 2019-02-01 02:29 | NUR ---
RT NOTE ROUTINE VENT CHECK DONE. PT INTUBATED AND ON VENT V4 ON STATED SETTINGS .VENT IS PLUGGED TO RED OUTLET. ALARMS ARE ON AND AUDIBLE AT NURSES STATION. AMBU BAG AT BEDSIDE AND CONNECTED TO O2 SOURCE. 7.5 ETT IS SECURED WITH ANCHORFAST AT 24 CM TO THE ORAL RIGHT. FIO2 TITRATED TO 40%, ANGEL LUIS HORN NOTIFIED. PT ON HEATED CIRCUIT WITH CIRCUIT TEMP 36.1, CVP 13, TEMP 100.6, POX 99%. Addendum: 02/01/19 at 0248 by Ingris Doll RT Amended: Links added.
[2019-02-01] MEDS: MIDAZOLAM DRIP 50 mg/50mL 50 ML IV SCH ×2 (02:58→11:57)
--- NOTE | 2019-02-01 03:11 | NUR ---
TURNING AND REPOSITIONING PT DOES NOT TOLERATE WELL. HR INCREASED TO 110'S BP >180 SBP. SEDATION INCREASED. WILL CONTINUE TO MONITOR PT.
--- NOTE | 2019-02-01 04:09 | NUR ---
RT NOTE ROUTINE VENT CHECK DONE. PT INTUBATED AND ON VENT V4 ON STATED SETTINGS. VENT IS PLUGGED TO RED OUTLET. ALARMS ARE ON AND AUDIBLE AT NURSES STATION. AMBU BAG AT BEDSIDE AND CONNECTED TO O2 SOURCE. 7.5 ETT IS SECURED WITH ANCHORFAST AT 24 CM TO THE ORAL RIGHT. INLINE SUCTION CHANGED WITHOUT INCIDENT. PT ON HEATED CIRCUIT WITH CIRCUIT TEMP 36.0, CVP 6, TEMP 100.8, POX 95%. Addendum: 02/01/19 at 0426 by Ingris Doll RT Amended: Links added.
[2019-02-01 04:21] LABS: Basophils # (auto) 0 uL; Basophils % (auto) 0.1 % (0.0-2.0); Eosinophils # (auto) 0 uL; Eosinophils % (auto) 0.1 % (0.0-7.0); Hematocrit 33.1 % (41.0-53.0); Lymphocytes # (auto) 0.4 uL; Lymphocytes % (auto) 5.2 % (10.0-50.0); Mean Corpuscular Hemoglobin 29.4 pg (28.0-32.0); Mean Corpuscular Hgb Conc. 33.2 g/dL (32.0-36.0); Mean Corpuscular Volume 88.4 fL (80.0-100.0); Monocytes # (auto) 0.4 uL; Neutrophils # (auto) 6.8 uL; Neutrophils % (auto) 89.6 % (37.0-80.0); Platelet Count (auto) 163 10^3/uL (140-450); Red Blood Cells 3.75 10^6/uL (4.5-5.90); Red Cell Distribution Width 14.4 % (11.8-14.3); White Blood Cell 7.6 10^3/uL (4.4-10.8)
[2019-02-01 04:51] LABS: Albumin 2.1 g/dL (3.4-5.0); Calcium 7.8 mg/dL (8.5-10.1); Potassium 3.9 mmol/L (3.5-5.1)
[2019-02-01 04:55] LABS: BUN/Creatinine Ratio 36.1; Bilirubin, Total 0.6 mg/dL (0.2-1.0); Phosphorus 2.6 mg/dL (2.5-4.90)
--- NOTE | 2019-02-01 07:00 | NUR ---
Opening Shift Note: Report received from ANGEL LUIS Flannery. Patient with low grade temp during the night. No new changes in condition. See Interventions for more details on the patient assessment.
[2019-02-01] MEDS ORDERED: FUROSEMIDE 40 MG/4 ML VIAL IV ONE (08:00)
[2019-02-01] MEDS: SODIUM CHLORIDE 0.9% 1,000 ML IV SCH ×2 (08:21→11:56)
[2019-02-01] MEDS: fentaNYL Drip 2500mCg/250mlNS 250 ML IV SCH (08:22)
--- NOTE | 2019-02-01 08:38 | NUR ---
Dr. Kam at bedside: Tap water enema for tomorrow and three for Sunday ordered, for colonoscopy.
[2019-02-01] MEDS: ENOXAPARIN SOD 40 MG/0.4 ML SYRINGE SC SCH (10:09)
[2019-02-01] MEDS: cefTRIAXone 1GM/50ML D5W 50 ML IV SCH (10:09)
[2019-02-01] MEDS: FAMOTIDINE (10MG/ML) 2ML VL IV SCH ×2 (10:09→22:25)
--- NOTE | 2019-02-01 10:11 | NUR ---
Dr. Osborn on at bedside: Keep insulin drip on - no sliding scale/no lantus for now. Ask Pulmo about peep changes.
[2019-02-01] MEDS: InsuLIN R (HUMAN) 100 UNITS in SODIUM CHL 0.9% 99 ML IV SCH ×8 (10:37→18:09)
[2019-02-01] MEDS ORDERED: hydrALAZINE HCL 20 MG/ML VL IV PRN (11:00)
--- NOTE | 2019-02-01 14:28 | NUR ---
Nutrition Follow-up Notes Wt.: 96.0 kg Pt`s intubated sedated with no family by bedside. per records pt to have colonoscopy. pt is currently NPO Est. Needs: 1950 kcal to 2400 kcal (20-25 kcal/kgBW), 78 gms to 97 gms pro (0.8-1.0 gms/kgBW). Will continue to monitor pertinent labs and reassess nutrient need prn Labs: CA 7.8 L, GLU 166 H, BUN 43 H, ALB 2.1 L. Skin: Leopoldo scale 12, high risk, skin intact per supervisor packing room. GI: Pt has no BM reported with 50 ml gastric drainage per supervisor packing room. PES: Altered nutrition related lab values r/t current/chronic medical condition aeb hyperglycemia, elev. renal labs, HbA1c, Mg, Trig, hypocalcemia and severe hypoalbuminemia Increased nutrient needs r.t current chronic medical condition aeb intubated, sedated, mod hypoalbuminemia, NPO Will continue to monitor NPO status, skin status, pertinent labs and weight trend. F/u in 2 to 3 days. Rec.: 1.) If still NPO in next 48 hrs, if GIT's working, consider to EN support of Glucerna 1.2 Josr @ 70 ml/hr goal rate as tolerated if medically appropriate. 2.) If Albumin level continues trending down with improved renal labs, consider Prostat 1 pkt BID. 3.) Advance gradually to oral diet when medically appropriate. 4.) Refer to RD for further nutrition educ. and weight monitoring upon discharge. 5.) Continue current plan of care.
[2019-02-01] MEDS ORDERED: DEXTROSE (50%) 50ML SYRG IV PRN (14:30)
--- NOTE | 2019-02-01 15:53 | NUR ---
Spoke with (Meg), and updated her on patient status. She wants to picker operator paper work that she brought in. I also informed her of Dr. Marcial plans for a sigmoid colonoscopy. She is in agreement and will sign the consent or do phone consent if she is unable to come in.
--- NOTE | 2019-02-01 15:54 | NUR ---
Dr. Huber at bedside: Peep decreased per order.
--- NOTE | 2019-02-01 16:46 | NUR ---
RT NOTE: PEEP DECREASED TO 10 CM/H2O PER DR. SPRAGUE VERBAL ORDER. RN CARISA RUIZ. ABG IN AM PER DR. SPRAGUE.
--- NOTE | 2019-02-01 18:41 | NUR ---
Respiratory note: TITRATED PEEP TO 8 AT THIS TIME
--- NOTE | 2019-02-01 18:54 | NUR ---
Hydralazine given for blood pressure.
--- NOTE | 2019-02-01 18:55 | NUR ---
Blood cultures positive -gram negative rods, hospitalist paged. Patient on rocephin.
--- NOTE | 2019-02-01 19:12 | NUR ---
Report given to ANGEL LUIS Hall.
--- NOTE | 2019-02-01 19:27 | NUR ---
Paged hospitals for blood pressure medication-hydralazine not working.
--- NOTE | 2019-02-01 19:44 | NUR ---
1930 ACCUCHECK 120
--- NOTE | 2019-02-01 19:44 | NUR ---
DR REBOLLEDO CALLED. MED CHANGE TO LABETOLOL Q 2 FOR SBP GREATER THAN 160. DON'T GIVE IF THE HR IS LESS THAN 100.
--- NOTE | 2019-02-01 20:00 | NUR ---
ADMITTED ON 01/29/2019 FROM HOME WITH ALOC, HYPOTHERMIA, LEG PAIN, ABDOMINAL PAIN, VOMITING AND TACHYCARDIA. INTUBATED IN ER. HE IS A PEDRO PATIENT AND THEY ARE WILLING TO KEEP HIM HERE UNTIL HE IS STABLE FOR TRANSPORT. ORALLY INTUBATED. RR 24-27. NO VENTILATOR CHANGES THIS SHIFT. ORAL NGT TO LIS. GOLD DRNG IN THE NGT. SUCTIONED A COPIOUS AMOUNT OF COBB SECRETIONS ORALLY AND FROM THE ETT. RIGHT LUNG IS COARSE, LEFT LUNG IS CLEAR AND DIMINISHED. + GAG AND COUGH. ABDOMEN IS ROUND AND SOFT. NO BM. HOGUE IN PLACE DRAINING AN ADEQUATE AMOUNT OF CLEAR YELLOW LIQUID TO DOWN DRAIN BAG. RADIAL PULSES PALPABLE. PEDALS WITH DOPPLER. BILATERAL FEET ARE COOL. LOW GRADE FEVER. FAN IS ON. ICE BAGS OFF. NSR WITHOUT ECTOPY. LABETOLOL WORKED IN BRINGING DOWN THE HEART RATE AND BLOOD PRESSURE. OPENS EYES. DOES NOT FOLLOW COMMANDS. SEDATION WITH FENTANYL AND VERSED. ON AN INSULIN DRIP. ACCUCHECKS Q 90 MINUTES. ALGORHYTHM 4. CVP BEING MONITORED FROM A RIJ TLC. CVP 12-13.
[2019-02-01] MEDS: LABETALOL HCL 5 MG/ML ML 20ML VIAL IV PRN (20:38)
--- NOTE | 2019-02-01 21:00 | NUR ---
ACCUCHECK 130
--- NOTE | 2019-02-01 22:30 | NUR ---
ACCUCHECK 136
[2019-02-02] VITALS (98 sets, daily range): BP systolic 117–193; BP diastolic 55–99
--- NOTE | 2019-02-02 | NUR ---
ACCUCHECK 121. DROWSY . MOVES BOTH FEET. DOES NOT MOVE ARMS TO PAINFUL STIMULI. MARIE. ORAL CARE. LESS COBB SECRETIONS. SUCTIONED ETT FOR A MODERATE AMOUNT OF THICK COBB SECRETIONS. NOW BOTH LUNG HINOJOSA ARE COARSE. ABDOMEN SOFT AND ROUND. ADEQUATE URINE OUTPUT. COLOR IS CLEAR MACHO. NO CHANGE IN PULSES. PEDALS ARE WITH THE DOPPLER LEFT LOUDER THAN RIGHT. BOTH FEET ARE COOL. IVS SHOW NO REDNESS OR SWELLING. NSR WITHOUT ECTOPY. BP WITHIN PARAMETERS. Q 90 MIN ACCUCHECKS CONTINUE. ALGORHYTHM NUMBER 4.
[2019-02-02] MEDS: IPRATROPIUM BROM 0.5 MG/2.5ML INH SOL NEB SCH ×4 (00:15→18:14)
[2019-02-02] MEDS: LEVALBUTEROL HCL 1.25 MG/3 ML NEB NEB SCH ×4 (00:16→18:16)
[2019-02-02] MEDS: ACETYLCYSTEINE 10 %(100MG/ML) SOL 4ML NEB SCH ×4 (00:17→18:14)
[2019-02-02] MEDS: LABETALOL HCL 5 MG/ML ML 20ML VIAL IV PRN ×5 (01:07→19:33)
--- NOTE | 2019-02-02 01:12 | NUR ---
SBP 192. LABETOLOL GIVEN
[2019-02-02] MEDS: SODIUM CHLORIDE 0.9% 1,000 ML IV SCH (01:14)
--- NOTE | 2019-02-02 01:29 | NUR ---
ACCUCHECK 106, INSULIN DRIP TURNED DOWN TO 2 UNITS
[2019-02-02] MEDS: ACCU-CHEK COMFORT CURVE STRIP VI SCH ×9 (01:30→23:45)
--- NOTE | 2019-02-02 02:00 | NUR ---
REPOSITIONED TO BACK . ORAL CARE. ETT SUCTIONED FOR COBB SECRETIONS. LUNGS COARSE. . NOTHING FROM NGT. FLUSHED NGT WITH WATER TO MAINTAIN TUBE. URINE OUTPUT MACHO.NSR WITHOUT ECTOPY. SBP CAME DOWN AFTER LABETOLOL.
--- NOTE | 2019-02-02 03:30 | NUR ---
ACCUCHECK 112
[2019-02-02] MEDS: MIDAZOLAM DRIP 50 mg/50mL 50 ML IV SCH ×3 (03:44→19:29)
--- NOTE | 2019-02-02 03:47 | NUR ---
AM LABS DONE
--- NOTE | 2019-02-02 04:00 | NUR ---
NO CHANGE NEUROLOGICALLY. MARIE. WAKES UP, EYES OPEN BRIEFLY WHEN MOVING. LUNGS COARSE BILATERALLY. NOTHING FROM NGT. LESS AND LESS COBB SECRETIONS. TEMPERATURE NORMAL. NO FAN, NO ICE BAGS. RECTAL TEMPERATURE PROBE IN. IVS SHOW NO REDNESS OR SWELLING. HOGUE : MACHO LIQUID.
[2019-02-02 04:43] LABS: Basophils # (auto) 0 uL; Basophils % (auto) 0.2 % (0.0-2.0); Eosinophils # (auto) 0 uL; Eosinophils % (auto) 0.3 % (0.0-7.0); Hematocrit 29.5 % (41.0-53.0); Hemoglobin 10.2 g/dL (13.5-17.5); Lymphocytes # (auto) 0.6 uL; Lymphocytes % (auto) 6.9 % (10.0-50.0); Mean Corpuscular Hemoglobin 30.1 pg (28.0-32.0); Mean Corpuscular Hgb Conc. 34.5 g/dL (32.0-36.0); Mean Corpuscular Volume 87.3 fL (80.0-100.0); Monocytes # (auto) 0.6 uL; Monocytes % (auto) 6.9 % (0.0-12.0); Neutrophils # (auto) 6.8 uL; Neutrophils % (auto) 85.7 % (37.0-80.0); Platelet Count (auto) 167 10^3/uL (140-450); Red Blood Cells 3.39 10^6/uL (4.5-5.90); Red Cell Distribution Width 14.4 % (11.8-14.3)
[2019-02-02 04:44] LABS: Calcium 7.9 mg/dL (8.5-10.1); Potassium 3.4 mmol/L (3.5-5.1)
[2019-02-02 04:49] LABS: BUN/Creatinine Ratio 42.3; Bilirubin, Total 0.9 mg/dL (0.2-1.0); Total Protein 5.6 g/dL (6.4-8.2)
--- NOTE | 2019-02-02 06:00 | NUR ---
ACCUCHECK 118 . REPOSITIONED TO BACK. SUCTIONED ETT. ORAL CARE.
[2019-02-02] MEDS: fentaNYL Drip 2500mCg/250mlNS 250 ML IV SCH ×2 (06:09→19:28)
--- NOTE | 2019-02-02 07:15 | NUR ---
Opening Shift Note: Report received from ANGEL LUIS Hall. Patient with low grade temp during the night. Labetalol Q2hr prn ordered for HTN given twice. See Interventions for more details on the patient assessment.
[2019-02-02] MEDS: InsuLIN R (HUMAN) 100 UNITS in SODIUM CHL 0.9% 99 ML IV SCH (09:00)
[2019-02-02] MEDS ORDERED: POTASSIUM EFFERVESENT TAB 25 MEQ GT ONE ×3 (09:45→11:00)
--- NOTE | 2019-02-02 10:22 | NUR ---
DR. MARROQUIN AT BEDSIDE: DISCONTINUE INSULIN DRIP, START SLIDING SCALE (MODERATE SCALE) IF BLOOD SUGAR OUT OF RANGE INCREASE TO AGGRESSIVE SCALE, BUT LET HER KNOW.
[2019-02-02] MEDS: ENOXAPARIN SOD 40 MG/0.4 ML SYRINGE SC SCH (10:28)
[2019-02-02] MEDS: cefTRIAXone 1GM/50ML D5W 50 ML IV SCH (10:28)
[2019-02-02] MEDS: FAMOTIDINE (10MG/ML) 2ML VL IV SCH ×2 (10:28→21:33)
[2019-02-02] MEDS ORDERED: DEXTROSE (50%) 50ML SYRG IV PRN (10:30)
[2019-02-02] MEDS ORDERED: hydrALAZINE HCL 20 MG/ML VL IV PRN (10:45)
[2019-02-02] MEDS ORDERED: FUROSEMIDE 40 MG/4 ML VIAL IV ONE (10:45)
[2019-02-02] MEDS: SOD CHL 0.45% WITH 20MEQ KCL 1,000 ML IV SCH ×2 (10:46→23:05)
[2019-02-02] MEDS: InsuLIN REG 1unit/0.01ml Soln (100units/ml) SC SCH ×4 (12:35→23:45)
--- NOTE | 2019-02-02 13:48 | NUR ---
DR. LYNCH AT BEDSIDE: POTASSIUM ORDERED, OK TO GIVE TYLENOL SUPPOSITORY FOR TEMP. START 1/2 NS WITH 20KCL.
--- NOTE | 2019-02-02 13:51 | NUR ---
UPDATE (IMER) ON PATIENTS STATUS, NO NEW CHANGES.
--- NOTE | 2019-02-02 14:52 | NUR ---
COOLING BLANKET PLACED FOR STABLE TEMP AT 100.6
[2019-02-02] MEDS: ACETAMINOPHEN 650 MG RECT SUPP PR PRN (15:33)
--- NOTE | 2019-02-02 19:27 | NUR ---
Report given to ANGEL LUIS Hall
--- NOTE | 2019-02-02 19:30 | NUR ---
SBP GREATER THAN 150. LABETOLOL GIVEN. COOLING BLANKET ON BUT IN RANGE. NSR WITHOUT ECTOPY. LUNGS COARSE.DID NOT SUCTION ANYTHING FROM ETT OR ORAL CAVITY. ORAL CARE DONE. MARIE. ABDOMEN LARGE, ROUND AND LIGHTLY FIRM. NO BOWEL SOUNDS. LEFT NARE NGT TO LIS. NO DRNG. PATENCY CHECKED. HOGUE IN PLACE DRAINING MACHO LIQUID TO DOWN DRAIN BAG. RIGHT IJ CENTRAL LINE CATHETER DRESSING CURRENT. NO DRNG,REDNESS OR SWELLING AT SITE. REMOVED THE 2 PERIPHERAL IVS. THEY WERE OUTDATED. RADIAL PULSES PALPABLE. PEDAL PULSES WITH DOPPLER. 1+ EDEMA IN LEGS. NO SKIN BREAKDOWN. Q 4 ACCUCHECKS . NO LANTUS. MODERATE SCALE REPLACEMENT. ACCUCHECK 140. ETT TO VENTILATOR.NOT OVERBREATHING THE VENTILATOR.ON FENTANYL AND VERSED FOR SEDATION. DR MARROQUIN WAS WANTING THE PATIENT TRANSFERRED TO [place]. BUT DR SPRAGUE FEELS HE WANTS HIM TO STAY. KCL REPLACEMENT GIVEN ON DAYSHIFT NGT AND A NEW MAINTENANCE IV WITH KCL ADDED. SCDS ON.
--- NOTE | 2019-02-02 22:00 | NUR ---
TEMP 100.2 ORALLY. RECTAL PROBE INACCURATE, REMOVED. ICE BAG TO BACK OF NECK. WASHED HAIR. GAVE HIS FIRST ENEMA WITH NO RESULTS. WATER WENT IN AND CAME OUT. NOTHING SUCTIONED FROM ETT. ORAL CARE DONE. OPENED EYES BRIEFLY WITH TURNING. NO MOVEMENT OF ARMS. WITHDRAWS FEET TO STIMULI. NSR WITHOUT ECTOPY.
[2019-02-03] VITALS (74 sets, daily range): BP systolic 106–213; BP diastolic 53–111
--- NOTE | 2019-02-03 | NUR ---
NO CHANGE NEUROLOGICALLY. TORI. LUNGS CLEAR. NOT SUCTIONING ANYTHING FROM ETT. NGT OUTPUT SINCE 1899 IS 25CC. URINE IS MACHO WITH SEDIMENT. RIJ TLC DRESSING DRY AND CURRENT. ABDOMEN VERY ROUND AND MILDLY FIRM. NO BOWEL SOUNDS. PULSES IN FEET WITH DOPPLER.
[2019-02-03] MEDS: LEVALBUTEROL HCL 1.25 MG/3 ML NEB NEB SCH ×3 (00:15→11:44)
[2019-02-03] MEDS: IPRATROPIUM BROM 0.5 MG/2.5ML INH SOL NEB SCH ×3 (00:15→11:44)
[2019-02-03] MEDS: ACETYLCYSTEINE 10 %(100MG/ML) SOL 4ML NEB SCH ×3 (00:16→11:44)
--- NOTE | 2019-02-03 01:30 | NUR ---
ENEMA GIVEN. RETURN WAS JUST THE WATER.
[2019-02-03] MEDS: LABETALOL HCL 5 MG/ML ML 20ML VIAL IV PRN ×3 (01:57→15:25)
--- NOTE | 2019-02-03 02:00 | NUR ---
SBP 213. LABETOLOL GAVE LABETOLOL. NSR WITHOUT ECTOPY. SBP CAME DOWN T 161 WITHIN 10 MINUTES. REPOSITIONED TO BACK. ORAL CARE. ETT SUCTIONED FOR NO SECRETIONS. ABDOMEN ROUND AND A LITTLE MORE FIRM. NOTHING COMING FROM THE NGT. IRRIGATED NGT. GOLD COLOR LIQUID RETURNED. URINE MACHO WITH SEDIMENT. FEET WARM. NEW ICE BAG TO BACK OF NECK. HR 95 CAME DOWN TO 87.
[2019-02-03] MEDS: ACETAMINOPHEN 650 MG RECT SUPP PR PRN (02:15)
--- NOTE | 2019-02-03 04:00 | NUR ---
TEMP 99.3. CHG BATH GIVEN. SILICONE LOTION TO ARMS AND LEGS. NEW EKG LEADS. LUNGS COARSE. NOTHING SUCTIONED FROM THE ETT. ORAL CARE WITH COBB SECRETIONS. ABDOMEN SLIGHTLY FIRM. NO FLATUS. NO BM. HOGUE: MACHO LIQUID WITH SEDIMENT. NO SKIN BREAKDOWN. REPOSITIONED TO LEFT SIDE. FLUSHED THE NGT WITH 30CC OF H2O. GOLD COLOR LIQUID FROM THE NGT.
[2019-02-03] MEDS: ACCU-CHEK COMFORT CURVE STRIP VI SCH ×4 (04:18→16:25)
[2019-02-03] MEDS: InsuLIN REG 1unit/0.01ml Soln (100units/ml) SC SCH ×4 (04:18→16:25)
[2019-02-03 04:26] LABS: Basophils # (auto) 0.1 uL; Basophils % (auto) 0.6 % (0.0-2.0); Eosinophils # (auto) 0.1 uL; Eosinophils % (auto) 0.8 % (0.0-7.0); Hematocrit 31.1 % (41.0-53.0); Hemoglobin 10.5 g/dL (13.5-17.5); Lymphocytes # (auto) 0.6 uL; Mean Corpuscular Hgb Conc. 33.9 g/dL (32.0-36.0); Mean Corpuscular Volume 88.6 fL (80.0-100.0); Monocytes # (auto) 0.6 uL; Monocytes % (auto) 5.5 % (0.0-12.0); Neutrophils # (auto) 9.1 uL; Neutrophils % (auto) 87.1 % (37.0-80.0); Platelet Count (auto) 189 10^3/uL (140-450); Red Blood Cells 3.51 10^6/uL (4.5-5.90); Red Cell Distribution Width 14.5 % (11.8-14.3); White Blood Cell 10.5 10^3/uL (4.4-10.8)
[2019-02-03 04:47] LABS: BUN/Creatinine Ratio 38.8; Bilirubin, Total 1.5 mg/dL (0.2-1.0); Potassium 3.7 mmol/L (3.5-5.1); Total Protein 5.9 g/dL (6.4-8.2)
--- NOTE | 2019-02-03 06:00 | NUR ---
OPENS EYES OCCASIONALLY WHEN YOU MOVE HIS HEAD. MARIE. SLUGGISH PUPILS. COBB SECRETIONS FROM THE MOUTH. ORAL CARE DONE. NOTHING SUCTIONED FROM ETT. LUNGS COARSE. ABDOMEN SLOWLY GETTING MORE FIRM. NO BM. ENEMA PRODUCED WATER AGAIN. HIT A PLACE WHERE IT SEEMS THE STOOL IS FIRM. FAN ON. TEMP DOWN TO 99.0
[2019-02-03] MEDS: MIDAZOLAM DRIP 50 mg/50mL 50 ML IV SCH (06:14)
--- NOTE | 2019-02-03 06:30 | NUR ---
Respiratory note: RECEIVED PATIENT ON V4 V200 VENT ORALLY INTUBATED WITH A 7.5 ETT SECURED VIA RANDI AT THE 24CM MARKING AT THE LIP, AND MECHANICALLY VENTILATED WITH THE CHARTED SETTINGS. SPO2 97%, LUNG SOUNDS DIM T/O, NO SECRETIONS WHEN SUCTIONED. SKIN IS WARM/DRY TO THE TOUCH AND IS INTACT NEAR RANDI SITE. THERE IS A NGT IN THE LEFT NARE AND IS SECURED TO THE NOSE, A TRIPLE LUMEN CENTRAL LINE PLACED IN THE RIGHT IJ AND IS PATENT. NO EDEMA NOTED IN UPPER EXTREMITIES, +1 PITTING EDEMA NOTED IN LOWER EXTREMITIES. AM CXR ASSESSED AND IT SHOWS ETT IN SATISFACTORY POSITION SITTING APPROX 3.4CM ABOVE THE NANDO, NO INDICATION TO ADJUST TUBE. PATIENT IS UNRESPONSIVE TO BOTH VERBAL/TACTILE STIMULI NAD IS SEDATED ON FENTANYL AND VERSED DRIPS. HE IS RESTING COMFORTABLY AND TOLERATING VENT WELL, NO CHANGES MADE. VENT PLUGGED INTO RED OUTLET AND ALL ALARMS ARE SET AND AUDIBLE. WILL CONTINUE TO ASSESS PATIENT WELL VENTILATOR FUNCTION. [employer] RUN INLINE.
[2019-02-03] MEDS: fentaNYL Drip 2500mCg/250mlNS 250 ML IV SCH (07:27)
[2019-02-03] MEDS: ENOXAPARIN SOD 40 MG/0.4 ML SYRINGE SC SCH (09:35)
[2019-02-03] MEDS: FAMOTIDINE (10MG/ML) 2ML VL IV SCH (09:45)
[2019-02-03] MEDS: cefTRIAXone 1GM/50ML D5W 50 ML IV SCH (09:45)
--- NOTE | 2019-02-03 10:20 | NUR ---
MD Dr. Osborn at bedside updated on patient condition with new orders, MD to input into system. Will continue to monitor patient closely.
[2019-02-03] MEDS ORDERED: SODIUM CHLORIDE LOCK 0 ML ONE (10:48)
[2019-02-03] MEDS ORDERED: fentaNYL CITRATE 100 MCG/2 ML VL ONE (10:49)
[2019-02-03] MEDS ORDERED: MIDAZOLAM HCL 5 MG/ML-1ML VIAL ONE (10:49)
[2019-02-03] MEDS ORDERED: diphenhdrAMINE HCL 50 MG/1 ML VL ONE (10:49)
--- NOTE | 2019-02-03 10:55 | NUR ---
MD Dr. Cleary at bedside updated on patient condition with no new orders. states " will be signing off case and if needed again please re-consult."
--- NOTE | 2019-02-03 11:00 | NUR ---
GI TEAM GI team at bedside to set up for coloscopy, awaiting for MD to arrive.
--- NOTE | 2019-02-03 11:08 | NUR ---
COLOSCOPY Dr. Kam at bedside and started coloscopy.
--- NOTE | 2019-02-03 11:23 | NUR ---
COLOSCOPY Dr. Kam has finished colonoscopy patient tolerated well. Will continue to monitor patient closely. Dr. Kam attempted to call Meg to notify her of the findings: NO answer.
[2019-02-03] MEDS: SOD CHL 0.45% WITH 20MEQ KCL 1,000 ML IV SCH (11:58)
[2019-02-03] MEDS ORDERED: PIPERACILLIN-TAZOB 3.375GM 100 ML IV SCH (12:00)
--- NOTE | 2019-02-03 12:05 | NUR ---
[facility] Received phone call from case filler Diana from [place] regarding transfer to their facility. Will call back when there is a bed available and accepting MD.
--- NOTE | 2019-02-03 12:06 | NUR ---
1145 02/03/19 Contacted Extension Service Agent Diana at [facility] and requested inpatient authorization for 02/01 and 02/02. Per Extension Service Agent Diana, no authorization provided, she stated that she has to go over the case with her MD. Requested transfer back to network facility for continued care due to no authorization provided as requested. Faxed Post Stabilization form to Extension Service Agent Diana at [phone] and scanned document into [employer]. I made Extension Service Agent Diana aware that I was faxing Notice Regarding Post Stabilization and that we are requesting that they transfer patient back into their network within an hour. Diana stated that they will work on the transfer-she also requested clinical documentation from today-stating that what they received is yesterday's information. I faxed her requested transfer order, transfer summary, today's labs, vitals, CXR and medication list. I also provided her with my contact information as well as Dr. Osborn's and the nurse's station. I requested that she contact me within an hour to provide me with transfer information/status.
--- NOTE | 2019-02-03 14:09 | NUR ---
1400 02/03/19 I called [employer] Assembly Inspector Diana [phone] to discuss the status of the transfer, she said they have an accepting physician at [facility], they are just waiting for a bed assignment and she will contact me when one becomes available.
--- NOTE | 2019-02-03 14:20 | NUR ---
[facility] Received phone call from briefcase sewer at [place] with bed assignment ICU room [address] Gonzalez Call for report at [phone] report to Vinay HEIN supervisor ski production time:[id number]
--- NOTE | 2019-02-03 14:22 | NUR ---
FAMILY Called and spoke to Meg Kumar, patients , regarding bed assignment at [facility]. made aware and agrees to transfer.
--- NOTE | 2019-02-03 15:00 | NUR ---
REPORT Report called at [phone] and given to Donell HEIN who will continue plan of care when patient arrives to their facility.
--- NOTE | 2019-02-03 15:05 | NUR ---
Assessment Pt is a 73 yr old intubated male. Pt's , Meg Kumar, was contacted at [phone] and answered questions on behalf of pt. 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 Pt's helps to take care of the pt with cooking, cleaning, dressing, and transporting the pt in a w/c. Pt currently receives SS and pension income. Pt's states that they are not interested in AD. Pt is in process of being transferred in network. Further needs will be assessed closer to d/c. Addendum: 02/03/19 at 1513 by SAMRA LEE Amended: Links added.
--- NOTE | 2019-02-03 15:54 | NUR ---
Nutrition Follow-up Notes Wt.: 96.10 kg today. Pt's intubated, sedated, no immediate family member at bedside except for RT & MD when rounded this morning. Pt's s/p Colonoscopy earlier, remains NPO, no order for alternate nutrition support yet at this time, per nursing. Noted pt's for active Surgical consult. Est. Needs: 1950 kcal to 2400 kcal (20-25 kcal/kgBW), 78 gms to 97 gms pro (0.8-1.0 gms/kgBW). Will continue to monitor pertinent labs and reassess nutrient need prn Labs: Gluc 167 H, BUN 26 H, Cr 0.67 L, Ca 8.0 L, Tot amparo 1.5 H, Tpro 5.9 L, Alb 2.8 L. Skin: Leopoldo scale 15, mod risk, skin intact per head athletic trainer/strength coach. GI: Pt has no bowel activity since 01/29/19, had 75 ml gastric drainage per head athletic trainer/strength coach. PES: Altered nutrition related lab values r/t current/chronic medical condition aeb hyperglycemia, elev. renal labs, HbA1c, Mg, Trig, hypocalcemia and severe hypoalbuminemia Increased nutrient needs r/t current chronic medical condition aeb intubated, sedated, mod hypoalbuminemia, NPO Will continue to monitor NPO status, skin status, pertinent labs and weight trend. F/u in 2 to 3 days. Rec.: 1.) If still NPO, if GIT's working, consider to EN support of Glucerna 1.2 Josr @ 70 ml/hr goal rate as tolerated if medically appropriate. 2.) If Albumin level continues trending down, consider Prostat 1 pkt BID. 3.) Advance gradually to oral diet when medically appropriate. 4.) Refer to RD for further nutrition educ. and weight monitoring upon discharge. 5.) Continue current plan of care.
--- NOTE | 2019-02-03 16:00 | NUR ---
Received phone call from Dr. Fletcher regarding consult for this patient. states " Patient is getting transferred to [facility] today. No consult needed on my standpoint."
--- NOTE | 2019-02-03 16:55 | NUR ---
[facility] arrived.
--- NOTE | 2019-02-03 17:05 | NUR ---
REPORT Report given to Mg HEIN from [facility], who will continue plan of care of patient until patient arrives to [facility].
--- NOTE | 2019-02-03 17:45 | NUR ---
DEPARTURE Patient has left the unit and in care of Mg HEIN and [facility] personnel. All paper work with patient.
== END 2019-02-03 18:22 | disposition short-term general hospital (02) | DRG 870 ==
LOC: EDBD 13:41 → ER 13:44 → TELE 13:45 → ICU WEST 16:03
PROVIDERS: ADMIT Nurse Practitioner Acute Care; ATTEND Internal Medicine
PROC: 5A1955Z Respiratory Ventilation, Greater than 96 Consecutive Hours (ICD-10-PCS; principal; 2019-01-29)
PROC: 0BH18EZ Insertion of Endotracheal Airway into Trachea, Via Natural or Artificial Opening Endoscopic (ICD-10-PCS; 2019-01-29)
PROC: 0DBM8ZX Excision of Descending Colon, Via Natural or Artificial Opening Endoscopic, Diagnostic (ICD-10-PCS; 2019-02-03)
PROC: 0DBN8ZX Excision of Sigmoid Colon, Via Natural or Artificial Opening Endoscopic, Diagnostic (ICD-10-PCS; 2019-02-03)
DX: A41.51 Sepsis due to Escherichia coli [E. coli] (principal); G93.41 Metabolic encephalopathy; J69.0 Pneumonitis due to inhalation of food and vomit; J96.01 Acute respiratory failure with hypoxia; J15.0 Pneumonia due to Klebsiella pneumoniae; R65.21 Severe sepsis with septic shock; N17.0 Acute kidney failure with tubular necrosis; E87.2 Acidosis; J90 Pleural effusion, not elsewhere classified; J98.11 Atelectasis; E87.1 Hypo-osmolality and hyponatremia; Z99.11 Dependence on respirator [ventilator] status; N39.0 Urinary tract infection, site not specified; E78.5 Hyperlipidemia, unspecified; E11.65 Type 2 diabetes mellitus with hyperglycemia; E83.42 Hypomagnesemia; E87.6 Hypokalemia; N40.0 Benign prostatic hyperplasia without lower urinary tract symptoms; E66.01 Morbid (severe) obesity due to excess calories; K57.30 Diverticulosis of large intestine without perforation or abscess without bleeding; K40.90 Unilateral inguinal hernia, without obstruction or gangrene, not specified as recurrent; N18.3 Chronic kidney disease, stage 3 (moderate); R19.00 Intra-abdominal and pelvic swelling, mass and lump, unspecified site; I12.9 Hypertensive chronic kidney disease with stage 1 through stage 4 chronic kidney disease, or unspecified chronic kidney disease; E11.22 Type 2 diabetes mellitus with diabetic chronic kidney disease; Z86.73 Personal history of transient ischemic attack (TIA), and cerebral infarction without residual deficits; Z85.038 Personal history of other malignant neoplasm of large intestine; Z90.49 Acquired absence of other specified parts of digestive tract; Z68.27 Body mass index [BMI] 27.0-27.9, adult; Z80.1 Family history of malignant neoplasm of trachea, bronchus and lung; Z80.42 Family history of malignant neoplasm of prostate; Z79.899 Other long term (current) drug therapy
CPT/HCPCS: 31500; 36415; 36556; 36600; 45380; 70450; 71045; 71250; 74018; 74176; 80048; 80053; 80061; 80202; 80320; 81001; 82378; 82550; 82570; 82805; 82962; 83036; 83605; 83735; 84100; 84300; 84443; 84484; 84550; 85025; 85610; 85730; 86850; 86900; 86901; 87040; 87070; 87077; 87081; 87086; 87186; 87205; 87804; 87880; 93005; 93306; 93970; 94002; 94003; 94640; 99291; G0378; J0330; J0696; J1815; J2250; J2543; J2704; J3480; J3490; J7060